=== PATIENT | female | born 1995 | race Caucasian/White ===

== ENCOUNTER 2017-08-11 10:47 | Emergency (ER) | payer SELFPAY ==
[~2017-08-11] VITALS: Ht 160 cm; Wt 54.4 kg
[~2017-08-11 10:47] MED LIST: HYDR-971 PO; HYDR1TAB10 PO; PRED-220 PO
[2017-08-11 11:06] VITALS: BP 125/82
[2017-08-11] MEDS ORDERED: CLIN300C8 PO (12:06)
[2017-08-11] MEDS ORDERED: MUPI15CR TP (12:06)
--- NOTE | 2017-08-11 12:11 | PHYS DOC ---
General Chief Complaint: ITCHING Stated Complaint: FACIAL INFECTIONS Time Seen by MD: 10:53 Source: patient Exam Limitations: no limitations Problems: History of Present Illness Initial Comments Patient is a 22-year-old female who comes to the emergency department complaining of itching. Patient is very anxious and jittery, she appears to be under the influence of alcohol or narcotic. She is inappropriate in the way that she keeps walking towards me any exam room prompting me to have a female nurse present. The patient's vitals are stable aside from a heart rate of 127 beats per minute. Patient denies any chest pain or trouble breathing she denies any nausea vomiting facial or throat swelling. She states she was "partying in the [place]" last night after being free from group home 2 days ago. She admits to smoking cigarettes and drinking alcohol on occasion but denies any type of drug use. Extensive track morgan are seen at bilateral arms from across the room despite this the patient denies usage. Her speech is very fast and tangential rambling it's hard to keep her on subject. She denies suicidal or homicidal ideation she has history of MRSA and an itchy rash consisting of small round scabbed lesions all over her face. Benadryl at home without any relief the patient continually writhing and moving throughout the interview. Timing/Duration: unsure Severity: moderate Modifying Factors: improves with other Associated Symptoms: rash Allergies: Coded Allergies: No Known Drug Allergies (Unverified , 07/02/16) Past Medical History Medical History: no pertinent history Surgical History: noncontributory Social History Smoker: cigarettes Alcohol: occasionally Drugs: none Review of Systems Constitutional: denies chills, denies fever Respiratory: denies cough, denies shortness of breath Cardiovascular: denies chest pain, denies palpitations Gastrointestinal: denies abdominal pain, denies nausea, denies vomiting Genitourinary: denies dysuria, denies frequency, denies hematuria Musculoskeletal: denies back pain, denies joint swelling, denies neck pain Skin: see HPI Psychiatric/Neurological: denies headache, denies numbness, denies paresthesia Physical Exam General Appearance: moderate distress (continually writhing and scratching at her face, compulsively brushing her hair appears intoxicated) Eyes: bilateral eye normal inspection, bilateral eye PERRL, bilateral eye EOMI Ear, Nose, Throat: hearing grossly normal, normal ENT inspection, normal pharynx Neck: non-tender, supple Respiratory: normal breath sounds, no respiratory distress Cardiovascular: normal peripheral pulses, tachycardia Gastrointestinal: non tender, soft Back: no CVA tenderness, no vertebral tenderness Extremities: non-tender, normal inspection 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 I discussed the need to do further workup regarding her elevated heart rate at which time she admits to using intravenous methamphetamine throughout the night. She does have someone to drive her and refuses further workup and the elevated heart rate is obviously attributed to the methamphetamine. I encouraged her to seek treatment and discontinue substance abuse. Patient was discharged home with a friend see departure for instructions. Departure Time of Disposition: 12:07 Disposition: 01 HOME, SELF-CARE Diagnosis: MRSA lesions facial, methamphetamine abuse Condition: STABLE Patient Instructions: MRSA Overview, Methamphetamine Abuse, Complications Additional Instructions: Discontinue substance abuse, seeking medical assistance if necessary. Wash the area with purpose or dove soap and warm water three times daily. Prescription: Clindamycin, Bactroban ointment (use [employer] application to find the best local [facility] and coupons for these prescriptions if no insurance). Take medications with food. [id number] Benadryl and other topical [id number] itch medications as needed for itching. Follow-up with a doctor in 3-5 days for recheck. If you do not have a doctor ED staff can give you a list of doctors in the area accepting new patients. If finances are an issue information can be given to you about the [facility]. Return to ED with new or changing symptoms. MANDO LAGUNAS DO Aug 11, 2017 12:11
== END 2017-08-11 12:31 | disposition home or self-care (01) ==
LOC: ER 10:47
DX: A49.02 Methicillin resistant Staphylococcus aureus infection, unspecified site (principal); F15.10 Other stimulant abuse, uncomplicated; F17.210 Nicotine dependence, cigarettes, uncomplicated
CPT/HCPCS: 99283